=== PATIENT | male | born 1950 | race Caucasian/White ===

== ENCOUNTER 2016-02-17 10:18 | Outpatient (CLI) | payer MEDICARE, OTHER | END 2016-02-17 10:19 | disposition home or self-care (01) | DX: E11.9 Type 2 diabetes mellitus without complications (principal); I10 Essential (primary) hypertension; E03.9 Hypothyroidism, unspecified; E78.5 Hyperlipidemia, unspecified; R06.09 Other forms of dyspnea; Z12.11 Encounter for screening for malignant neoplasm of colon ==

== ENCOUNTER 2016-02-19 10:47 | Outpatient (CLI) | payer MEDICARE, OTHER | END 2016-02-19 10:48 | disposition home or self-care (01) | DX: Z12.11 Encounter for screening for malignant neoplasm of colon (principal) ==